=== PATIENT | male | born 1940 | race Two or more races ===

== ENCOUNTER 2019-03-13 19:56 | Emergency (ER) | payer OTHER ==
[~2019-03-13] VITALS: Ht 167.6 cm; Wt 77.1 kg
[2019-03-13] MEDS ORDERED: METFORMIN HCL500 MG (20:26)
[2019-03-13] MEDS ORDERED: PLAVIX75 MG (20:26)
[2019-03-13] MEDS ORDERED: NORVASC5 MG (20:29)
[2019-03-13] MEDS ORDERED: LOSARTAN POTASS50 MG (20:29)
[2019-03-14] MEDS ORDERED: LEVSIN/SL0.125 MG SL (06:21)
[2019-03-14] MEDS ORDERED: INTESTINEX680 M1 PO (06:21)
== END 2019-03-14 06:40 | disposition home or self-care (01) ==
LOC: ER 19:56
DX: K52.9 Noninfective gastroenteritis and colitis, unspecified (principal)